=== PATIENT | male | born 1980 | race Two or more races ===

== ENCOUNTER 2018-03-24 23:54 | Emergency (ER) | payer SELFPAY ==
[2018-03-25 00:07] VITALS: RESP 16; O2SAT 100
--- NOTE | 2018-03-25 02:07 | ED PDOC ---
HPI: Psych/Substance Abuse Time Seen by Provider: 03/25/18 01:16 Chief Complaint (Nursing): Alcohol Ingestion Chief Complaint (Provider): Alcohol Ingestion History Per: Patient Onset/Duration Of Symptoms: Sudden Onset Current Symptoms Are (Timing): Still Present Additional Complaint(s): 37 year old male arrives to ED via EMS for an evaluation of a head injury status post falling off bar stool prior to arrival. Patient admits to drinking alcohol tonight with a right-side abrasion noted on forehead. He denies any headache, visual changes, nausea, or vomiting. PCP: none provided Past Medical History Reviewed: Historical Data, Nursing Documentation, Vital Signs Vital Signs: Last Vital Signs Temp 98.1 F 03/25/18 00:03 Pulse 82 03/25/18 00:03 Resp 16 03/25/18 00:03 BP 127/92 H 03/25/18 00:03 Pulse Ox 100 03/25/18 00:03 - Medical History PMH: No Chronic Diseases - Surgical History Surgical History: No Surg Hx - Family History Family History: States: Unknown Family Hx - Social History Alcohol: Occasional - Allergies Allergies/Adverse Reactions: Allergies Allergy/AdvReac Type Severity Reaction Status Date / Time No Known Allergies Allergy Verified 03/25/18 00:03 Review of Systems ROS Statement: Except As Marked, All Systems Reviewed And Found Negative Eyes: Negative for: Vision Change Gastrointestinal: Negative for: Nausea, Vomiting Neurological: Positive for: Other (right-sided forehead abrasion). Negative for: Headache Physical Exam - Reviewed Nursing Documentation Reviewed: Yes Vital Signs Reviewed: Yes - Physical Exam Appears: Positive for: Non-toxic, No Acute Distress Head Exam: Negative for: ATRAUMATIC Skin: Positive for: Normal Color Eye Exam: Positive for: Normal appearance, EOMI, PERRL ENT: Positive for: Normal ENT Inspection Neck: Positive for: Normal, Painless ROM, Supple Cardiovascular/Chest: Positive for: Regular Rate, Rhythm Respiratory: Positive for: Normal Breath Sounds Extremity: Positive for: Normal ROM (upper/lower) Neurologic/Psych: Positive for: Alert, drafter automotive design II-XII (grossly intact), Oriented, Gait (steady), Other (right forehead abrasion). Negative for: Motor/Sensory Deficits, Aphasia - ECG O2 Sat by Pulse Oximetry: 100 (RA) Pulse Ox Interpretation: Normal Medical Decision Making Medical Decision Making: Initial Impression: 37 year old male with head injury in setting of alcohol use. Initial Plan: * CT head Time: 015 --CT Head Findings Normal size of the ventricles and extra-axial spaces for the patient's age. Normal white matter tracts of the supratentorial brain. Normal basal ganglia and thalami. Normal brainstem. Normal cerebellum. There is no demonstrated extra-axial, intraparenchymal, or intraventricular hemorrhage. There are no findings of an acute ischemic infarction. Normal calvarium. There is no demonstrated fracture. Normal soft tissue structures. Normal visualized paranasal sinuses. IMPRESSION: Normal unenhanced CT scan of the brain. Time: 202 --Upon provider reevaluation, patient is medically stable, AxO x3 with steady gait, and requires no further treatment in the ED at this time. Patient will be discharged home. Counseling was provided and all questions were answered reg arding diagnosis. There is agreement to discharge plan. Return if symptoms persist or worsen. Clinical Impression: Head injury Scribe Attestation: Documented by Lucina Green, acting as a scribe for Jon Gipson MD. Provider Scribe Attestation: All medical record entries made by the Scribe were at my direction and personally dictated by me. I have reviewed the chart and agree that the record accurately reflects my personal performance of the history, physical exam, medical decision making, and the department course for this patient. I have also personally directed, reviewed, and agree with the discharge instructions and disposition. Disposition - Clinical Impression Clinical Impression: Head injury - Patient ED Disposition Is Patient to be Admitted: No Counseled Patient/Family Regarding: Studies Performed, Diagnosis - Disposition Disposition: Routine/Home Disposition Time: 02:03 Condition: STABLE Instructions: Minor Head Injury Forms: [employer] (Vietnamese) Print Language: PANAMANIAN
[2018-03-25 04:50] VITALS: BP 122/70; PULSE 89; TEMP 98.4
--- NOTE | 2018-03-25 09:32 | CT ---
Date of service: 03/25/2018 PROCEDURE: CT HEAD WITHOUT CONTRAST. HISTORY: head injury COMPARISON: None available. TECHNIQUE: Axial computed tomography images were obtained through the head/brain without intravenous contrast. Radiation dose: Total exam DLP = 766.19 mGy-cm. This CT exam was performed using one or more of the following dose reduction techniques: Automated exposure control, adjustment of the mA and/or kV according to patient size, and/or use of iterative reconstruction technique. FINDINGS: HEMORRHAGE: No intracranial hemorrhage. BRAIN: Normal johnson-white matter differentiation and density are appreciated throughout the cerebrum and cerebellum with the brainstem appearing unremarkable as well. There is no mass effect. There is no suspicious extra-axial fluid collection and the midline brain anatomy appears diffusely unremarkable. VENTRICLES: Unremarkable. No hydrocephalus. CALVARIUM: No destructive bony lesion or displaced fracture identified including through the skullbase. PARANASAL SINUSES: Unremarkable as visualized. No significant inflammatory changes. MASTOID AIR CELLS: Unremarkable as visualized. No inflammatory changes. OTHER FINDINGS: None. IMPRESSION: Unremarkable enhanced CT of the Head. Concordant preliminary report from Rudi, 04/14/2018 1:51 a.m..
== END 2018-03-25 02:05 | disposition home or self-care (01) ==
LOC: H.ER 23:54
DX: S09.90XA Unspecified injury of head, initial encounter (principal); W07.XXXA Fall from chair, initial encounter; Y92.89 Other specified places as the place of occurrence of the external cause